=== PATIENT | female | born 1990 | race Caucasian/White ===

== ENCOUNTER 2025-02-19 18:16 | Emergency (ER) | payer MEDICAID, SELFPAY ==
[2025-02-19 18:16] VITALS: BMI 27.3
[2025-02-19 18:31] VITALS: BP 141/91; PULSE 78; RESP 18; TEMP 36.8; O2SAT 99
--- NOTE | 2025-02-19 19:42 | EDNOTE_ITS ---
ED Dental RME/HPI General Chief complaint: Dental/Oral/Throat Stated complaint: POSS DENTAL INFECTION ON LEFT SIDE SWOLLEN Time Seen by Provider: 02/19/25 19:27 Arrival date/time: 02/19/25 18:16 34F with history of ITP presents to ED with 2 days of R lower dental pain and swelling. Patient will see dentist soon. Limitations: no limitations Related Data Previous Rx's ?Medication ?Instructions ?Recorded Hydrocodone/Acetaminophen * (NORCO 1 tab PO Q6H PRN pa in #28 tabs 02/24/16 5/325 *) Hydrocodone/Acetaminophen * (NORCO 1 - 2 tab PO Q4H [place] N PAIN #14 tabs 02/25/16 5/325 *) loperamide 2 mg capsule (Imodium 2 mg PO Q6H PRN loose stool #14 07/22/23 A-D) caps ondansetron 4 mg disintegrating 4 mg PO Q8H PRN nausea and 07/22/23 tablet vomiting #10 tabs amoxicillin 875 mg-potassium 1 tab PO BID 7 days #14 t abs 02/19/25 clavulanate 125 mg tablet Allergies Allergy/AdvReac Type Severity Reaction Status Date / Time milk Allergy Verified 02/19/25 18:18 peanut Allergy Verified 02/19/25 18:18 Review of Systems Review of Systems Systems Reviewed: All systems reviewed, normal except as documented ENT Ears, Nose, Mouth, and Throat: Reports as per HPI and Reports dental pain Past Medical History Past Medical History NEUROLOGIC: Negative Neurological Disorders CARDIAC: Negative Cardiac Disorders HEMATOLOGIC: Positive Blood Disorders Social History SMOKING STATUS: Never smoker ED Exam General Limitations: Present no limitations General appearance: Present alert and in no apparent distress Head Head exam: Present atraumatic ENT ENT exam: Present mucous membranes moist and other (R jaw swelling) Expanded ENT Exam Teeth exam: Present dental caries Neck Neck exam: Present normal inspection, full ROM and trachea midline Chest Chest inspection: Present normal inspection and symmetric chest wall rise Neurological Exam Neurological exam: Present alert and oriented X3 Psychiatric Psychiatric exam: Present normal affect and normal mood Skin Skin exam: Present warm, dry, intact and normal color Course Quality Measures none Orders Category Date Time Status Amoxicillin/Pot Clav 875 [Augmentin 875] Med 02/19/25 19:27 Discontinued 1 tab PO X1 ONE HYDROcodone*/APAP 5/325 [[place] 5/325] Med 02/19/25 19:27 Discontinued 1 tab PO X1 ONE Vital Signs Vital signs: Vital Signs Temperature 98.2 F 02/19/25 18:31 Pulse Rate 78 02/19/25 18:31 Respiratory Rate 18 02/19/25 18:31 Blood Pressure 141/91 H 02/19/25 18:31 Pulse Oximetry (%) 99 02/19/25 18:31 Oxygen Delivery Method Room Air 02/19/25 18:31 O2 at 99% on RA and WNLs Dental / Oral MDM Narrative MDM Narrative:: 34F with history of ITP presents to ED with 2 days of R lower dental pain and swelling. Patient will see dentist soon. Physical exam reveals dental caries and R lower jaw swelling and tenderness. Patient is afebrile, calm, and alert. Meds and disability counselor given. Patient data External records reviewed:: [facility] previous records Clinical information provided by:: patient Social determinants that could affect healthcare access:: none Patient has the following chronic illnesses:: ITP How is presenting disease/condition affected by chronic disease/condition?: uneffected by Evaluation data The following diagnostics were reviewed and interpreted by me:: other (specify) (none) Lab and/or radiology exams considered but not ordered:: not ordered Interpretation Summary: n/a Medications / Prescriptions Medications or Prescriptions considered but not ordered:: ordered Medication administrations:: Medication Administration History Discontinued Medications Hydrocodone Bitart/Acetaminophen (Hydrocodone/Apap 5/325 Tablet) 1 tab PO X1 ONE Stop: 02/19/25 19:28 Amoxicillin/Clavulanate Potassium (Amoxicillin/Pot Clav 875 Tablet) 1 tab PO X1 ONE Stop: 02/19/25 19:28 above Consultations Consultation(s) initiated? (list below): No Diagnosis Dental Differential Diagnosis: gingival abscess, dental caries, toothache, dental abscess, fracture of tooth and aphthous ulcer Most likely diagnosis given after review of the tests above:: dental abscess Admission Indicated Admission indicated?: not indicated Admission Request Was there a request for admission?: No Disposition Plan Disposition Plan: Discharge Discharge Attestation Discharge Attestation: The patient and all family members were given an opportunity to ask questions and understood the discharge instructions. Discharge instructions specifically effects, indications for sooner follow up or return to the emergency department, and the expected course of current diagnosis. Patient condition: Stable Discharge Plan Plan Patient Disposition: HOME (Self Care) Discharge Disposition comment: Stable Prescriptions/Referrals Prescriptions/Med Rec: New amoxicillin-pot clavulanate 875-125 mg tablet 1 tab PO BID 7 Days Qty: 14 0RF No Action Hydrocodone/Acetaminophen * (NORCO 5/325 *) 1 TAB tablet 1 tab PO Q6H PRN (Reason: pain) Qty: 28 0RF Hydrocodone/Acetaminophen * (NORCO 5/325 *) 1 TAB tablet 1 - 2 tab PO Q4H PRN (Reason: PAIN) Qty: 14 0RF Rx Instructions: FOR PAIN loperamide [Imodium A-D] 2 mg capsule 2 mg PO Q6H PRN (Reason: loose stool) Qty: 14 0RF ondansetron 4 mg tablet,disintegrating 4 mg PO Q8H PRN (Reason: nausea and vomiting) Qty: 10 0RF Problem List Clinical Impression: Dental abscess Patient/Caregiver Discharge Instructions Education Materials: ED Dental Abscess with Facial ... Additional Instructions: Please follow-up with PCP within 24-48 hours and return immediately if symptoms worsen. See dentist soon. Print Language: Faroese Stand Alone Forms: Patient Portal Info Letter PA/MECHANICAL MAINTENANCE ENGINEER Supervising Physician EARLINE/LAMIN Supervising Physician: Dr. Rod
[2025-02-19] MEDS: AMOXICILLIN/POT CLAV 875 TABLET 1 TAB PO (19:44)
[2025-02-19] MEDS: HYDROcodone/APAP 5/325 TABLET 1 TAB PO (19:45)
== END 2025-02-19 20:11 | disposition home or self-care (01) ==
LOC: SERX 19:57
PROVIDERS: Emergency Provider Emergency Medicine; PCP Physician Assistant Medical
DX: K04.7 Periapical abscess without sinus (principal)
CPT/HCPCS: 99281; A9270